=== PATIENT | male | born 1960 | race Caucasian/White ===

== ENCOUNTER 2022-12-02 10:02 | Inpatient (IN) | payer OTHER, SELFPAY ==
[2022-11-26 14:37] LABS: BASOPHILS % (AUTO) 0.5 % (0-1); EOSINOPHILS # (AUTO) 0.1 X10'3 (0-0.9); LYMPHOCYTES # (AUTO) 1.2 X10'3 (1.1-4.8); LYMPHOCYTES % (AUTO) 22.9 % (21-51); MEAN CORPUSCULAR HEMOGLOBIN 31.7 PG (27.0-31.0); MEAN CORPUSCULAR HGB CONC 33.3 g/dL (33.0-36.5); MEAN CORPUSCULAR VOLUME 95.2 FL (78-98); MEAN PLATELET VOLUME 8.2 FL (7.4-10.4); MONOCYTES # (AUTO) 0.6 X10'3 (0-0.9); MONOCYTES % (AUTO) 11.9 % (2-12); NEUTROPHILS # (AUTO) 3.4 X10'3 (1.8-7.7); NEUTROPHILS % (AUTO) 63.7 % (42-75); PRE OP HEMATOCRIT 42.7 % (42.0-52.0); PRE OP HEMOGLOBIN 14.2 g/dL (14.0-17.9); PRE OP PLATELET COUNT 198 X10'3 (140-440); PRE OP WHITE BLOOD COUNT 5.3 10'3 (4.8-10.8); RED BLOOD COUNT 4.49 X10'6 (4.70-6.10); RED CELL DISTRIBUTION WIDTH 14.3 % (11.5-14.5)
[2022-11-26 14:53] LABS: ALBUMIN 3.9 G/DL (3.4-5.0); ALBUMIN/GLOBULIN RATIO 1.2 (1.1-1.5); ALKALINE PHOSPHATASE 59 IU/L (46-116); BLOOD UREA NITROGEN 11 MG/DL (7-18); BUN/CREATININE RATIO 11.6 (10.0-20.0); CALCIUM 9.3 MG/DL (8.5-10.1); CHLORIDE 104 MMOL/L (99-107); CREATININE 0.95 MG/DL (0.60-1.10); PRE OP ALT 32 U/L (30-65); PRE OP ANION GAP 6 (8-16); PRE OP AST 18 U/L (10-37); PRE OP BILIRUB, TOTAL 0.4 MG/DL (0.0-1.0); PRE OP POTASSIUM 3.9 MMOL/L (3.4-5.1); PRE OP SODIUM 139 MMOL/L (135-145); TOTAL CARBON DIOXIDE 29.3 MMOL/L (24-32); TOTAL PROTEIN 7.1 G/DL (6.4-8.2); eGFR 80 ML/MIN
[2022-11-26 14:59] LABS: PRE OP GLUCOSE 100 MG/DL (70-104)
[2022-12-01 19:06] VITALS: BP 163/89; PULSE 66; RESP 20; TEMP 98.9; O2SAT 95
[2022-12-02] VITALS (21 sets, daily range): BP systolic 131–168; BP diastolic 73–89; PULSE 53–69; RESP 13–22; TEMP 98.9–99.2; O2SAT 93–100
[~2022-12-02] VITALS: Ht 170.2 cm; Wt 79.7 kg
[~2022-12-02 10:02] MED LIST: ASCO-139 PO; ATOR20TA PO; CETI10TA19 PO; CHOL50002 PO; CYAN100097 PO; FLO0.4C PO; HYPR15DR4 EACHEYE; LISI20TA28 PO; OMEP40CA21 PO; SIME80TA16 PO; TURM500C4 PO; [UNRECOGNIZED DRUG - CODE] EACHEYE; cefazolin 2gm/D5W 100mL 100 ML IV ONE; famotidine 20mg tablet PO ONE; ringers solution, lacted 1,000 ML IV SCH; tranexamic acid 650mg tablet PO ONE; vancomycin 1,500 MG in NS 300ml IV soln IV ONE
--- NOTE | 2022-12-02 12:00 | NUR ---
PT STATES HE BATHED AND USED BACTROBAN OINTMENT FOR THE LAST 5 DAYS PER TOTAL JOINT REPLACEMENT RECOMMENDATIONS, STATES HE DID NOT READ OR WATCH A DVD REGARDING TJR HE HAS HAD HIS LEFT SHOULDER REPLACED. PT DENIES DECREASED SENSATION IN RIGHT ARM/HAND. Addendum: 12/02/22 at 1505 by Isela Rob RN Amended: Links added.
[2022-12-02] MEDS ORDERED: ROPIVAcaine 0.5% (5mg/ml) 30ml vial ONE ×2 (13:28→14:17)
[2022-12-02] MEDS ORDERED: ketorolac trometh. 30mg/ml inj. ONE (13:28)
[2022-12-02] MEDS ORDERED: propofol inj 20 ML IV ONE (14:15)
[2022-12-02] MEDS ORDERED: MIDAZolam 1 MG/ML 5ML VIAL ONE (14:15)
[2022-12-02] MEDS ORDERED: fentaNYL/PF 50MCG/1 ML 2ML syringe ONE (14:15)
[2022-12-02] MEDS ORDERED: morphine 2 MG/ML inj. syringe IV PRN (14:20)
[2022-12-02] MEDS ORDERED: morphine 4 MG/ML inj SYRINge IV PRN (14:20)
[2022-12-02] MEDS ORDERED: ROPIVAcaine 0.2%/PF PUMP/bolus 545 ML INTERSCALE SCH (14:20)
[2022-12-02] MEDS ORDERED: proCHLORperazine 10 MG/2 ml inj IV PRN (14:20)
[2022-12-02] MEDS ORDERED: meperidine/PF 25mg/ml syringe IV PRN ×3 (14:20)
[2022-12-02] MEDS ORDERED: ringers solution, lacted 1,000 ML IV SCH (14:20)
[2022-12-02] MEDS ORDERED: ondansetron/PF 4mg/2ml inj IV PRN ×2 (14:20→15:30)
[2022-12-02] MEDS ORDERED: ROPIVAcaine 0.2% (10 MG/5 ML) BOLUS INJECTION INTERSCALE PRN (14:20)
[2022-12-02] MEDS ORDERED: ROPIVAcaine 0.5% (5mg/ml) 30ml vial IJ ONE (14:30)
[2022-12-02] MEDS ORDERED: sevoflurane 250ml liquid IH ONE (14:58)
[2022-12-02] MEDS ORDERED: hypromellose ophthalmic drops EACHEYE PRN ×2 (15:30→17:10)
[2022-12-02] MEDS ORDERED: magnesium hydroxide 30ml (MOM) UD suspension PO PRN (15:30)
[2022-12-02] MEDS ORDERED: bisacodyl 10mg suppository rectal RC PRN (15:30)
[2022-12-02] MEDS ORDERED: oxyCODONE IR 5mg (immed. release) tablet PO PRN ×2 (15:30)
[2022-12-02] MEDS ORDERED: diphenhydrAMINE 25mg capsule PO PRN ×2 (15:30)
[2022-12-02] MEDS ORDERED: naloxone 0.4 mg/ml inj IV PRN (15:30)
[2022-12-02] MEDS ORDERED: HYDROmorphone 1 mg/ml syringe IV PRN (15:30)
[2022-12-02] MEDS ORDERED: acetaminophen 325mg tablet PO PRN (15:30)
[2022-12-02] MEDS ORDERED: HYDROcodone/acetaminophen 10/325mg tab PO PRN ×2 (15:30)
[2022-12-02] MEDS ORDERED: HYDROmorphone inj. 0.5 MG/0.5 ML DISP.SYRIN IV PRN (15:30)
--- NOTE | 2022-12-02 16:59 | NUR ---
Received from OR via BED IN STABLE CONDITION , accompanied by Anesthesiologist and PAPER HANGER report given by PAPER HANGER AND Anesthesiolgist. Addendum: 12/02/22 at 1737 by Kerri Mills RN Amended: Links added.
--- NOTE | 2022-12-02 18:50 | NUR ---
Patient in room ORTHO 4023. I have received report from RASHAAD Manning in PACU and had the opportunity to ask questions and assume patient care.
--- NOTE | 2022-12-02 18:59 | NUR ---
PATIENT DISCHARGED FROM PACU IN STABLE CONDITION AFTER REPORT GIVEN TO RN TAKING OVER PATIENTS CARE. PATIENT TRANSFERRED TO ROOM 4020A VIA BED WITH RASHAAD AND JENNIFER. Addendum: 12/02/22 at 1926 by Kerri Mills RN Amended: Links added.
--- NOTE | 2022-12-02 19:00 | NUR ---
Patient arrived from PACU on a hospital bed, he had a right total shoulder. He is A&O x3, CARABALLO and is appropriate, I will continue to monitor.
[2022-12-02] MEDS: potassium cl 20mEq in 1/2 NS 1,000 ML IV SCH ×2 (19:27→23:30)
[2022-12-02] MEDS: simethicone 80mg chew tab PO SCH (19:29)
[2022-12-02] MEDS ORDERED: TURMERIC PO SCH (20:00)
[2022-12-02] MEDS ORDERED: TURMERIC ROOT EXTRACT PO SCH (20:00)
[2022-12-02] MEDS: FLUOROMETHOLONE EACHEYE SCH (20:00)
[2022-12-02] MEDS: acetaminophen 325mg tablet PO SCH (20:35)
[2022-12-02] MEDS: lisinopril 20mg tablet PO SCH (20:39)
[2022-12-02] MEDS ORDERED: atorvastatin 20mg tablet PO SCH (21:00)
[2022-12-02] MEDS ORDERED: cetirizine 10mg tablet PO SCH (21:00)
[2022-12-02] MEDS ORDERED: sennosides 8.6mg tablet PO SCH (21:00)
[2022-12-03] MEDS: simethicone 80mg chew tab PO SCH ×2 (00:32→10:07)
[2022-12-03 02:00] VITALS: BP 130/74; PULSE 81; RESP 20; TEMP 98.5; O2SAT 95
[2022-12-03] MEDS: potassium cl 20mEq in 1/2 NS 1,000 ML IV SCH (02:59)
[2022-12-03] MEDS: acetaminophen 325mg tablet PO SCH ×2 (02:59→09:13)
--- NOTE | 2022-12-03 06:13 | NUR ---
Problems reprioritized. Patient report given, questions answered & plan of care reviewed with RASHAAD Ortez.
[2022-12-03] MEDS ORDERED: pantoprazole 40mg Tablet.DR PO SCH ×2 (07:30)
[2022-12-03 07:50] VITALS: BP 126/58; PULSE 68; RESP 16; RESP 20; TEMP 98.2; O2SAT 98
[2022-12-03] MEDS ORDERED: ascorbic acid 500mg tablet PO SCH (08:00)
[2022-12-03] MEDS: FLUOROMETHOLONE EACHEYE SCH (08:00)
[2022-12-03] MEDS ORDERED: cholecalciferol (vitamin D3) 1,000 unit (25mcg) tablet PO SCH (08:00)
[2022-12-03] MEDS ORDERED: tamsulosin 0.4mg capsule PO SCH (08:00)
[2022-12-03] MEDS ORDERED: aspirin 325mg tablet PO SCH (08:30)
[2022-12-03 09:51] LABS: BASOPHILS % (AUTO) 0.3 % (0-1); EOSINOPHILS % (AUTO) 0.2 % (0-6); HEMATOCRIT 37.3 % (42.0-52.0); HEMOGLOBIN 12.5 g/dl (14.0-17.9); LYMPHOCYTES # (AUTO) 0.6 X10'3 (1.1-4.8); LYMPHOCYTES % (AUTO) 6.8 % (21-51); MEAN CORPUSCULAR HEMOGLOBIN 31.9 PG (27.0-31.0); MEAN CORPUSCULAR HGB CONC 33.4 g/dL (33.0-36.5); MEAN CORPUSCULAR VOLUME 95.5 FL (78-98); MEAN PLATELET VOLUME 8.2 FL (7.4-10.4); MONOCYTES # (AUTO) 0.9 X10'3 (0-0.9); MONOCYTES % (AUTO) 9.7 % (2-12); NEUTROPHILS # (AUTO) 7.7 X10'3 (1.8-7.7); PLATELET COUNT 159 X10'3 (140-440); RED CELL DISTRIBUTION WIDTH 14.6 % (11.5-14.5); WHITE BLOOD COUNT 9.3 X10'3 (4.5-11.0)
[2022-12-03 10:00] VITALS: BP 147/67; PULSE 60; RESP 18; TEMP 98.1; O2SAT 98
[2022-12-03 10:03] LABS: ANION GAP 0 (8-16); CHLORIDE 100 MMOL/L (99-107); SODIUM 127 MMOL/L (135-145); TOTAL CARBON DIOXIDE 26.6 MMOL/L (24-32)
[2022-12-03 10:09] LABS: POTASSIUM 7.1 MMOL/L (3.5-5.1)
[2022-12-03] MEDS ORDERED: cyanocobalamin 500mcg tablet PO SCH (10:12)
--- NOTE | 2022-12-03 11:21 | NUR ---
Joint surgery consult: Pt s/p R shoulder surgery this admit per EMR. Pt unable to be seen for in-person high protein diet ed at this time due to staffing. Written high protein diet ed w/ RD contact information mailed to pt home address in EMR. Addendum: 12/03/22 at [address] Amended: Links added.
[2022-12-03] MEDS ORDERED: ketorolac trometh. 30mg/ml inj. IV ONE (12:10)
[2022-12-03 16:15] VITALS: BP 180/81; PULSE 67; RESP 18; TEMP 98.2; O2SAT 99
[2022-12-03 16:35] VITALS: BP 167/84; PULSE 70; RESP 18
--- NOTE | 2022-12-03 16:42 | NUR ---
Spoken with [employer] QUIROGA, 1600 pt c/o 8/10 pain, shivers but not cold bp 180/81 1635 states pain down to 10 bp 167/84 amb in white with sister, no assist required. instructed to give pm dose of lisinipril, ok to dc home.
[2022-12-03 16:55] VITALS: BP_SYST 170; PULSE 69
[2022-12-03] MEDS: lisinopril 20mg tablet PO SCH (16:55)
[2022-12-04] MEDS ORDERED: acetaminophen 325mg tablet PO PRN (15:30)
== END 2022-12-03 17:32 | disposition home or self-care (01) | DRG 483 ==
LOC: PAS IN 10:02 → ORTHO 4S 19:13
PROVIDERS: ADMIT Orthopaedic Surgery; ATTEND Orthopaedic Surgery
PROC: 0LS30ZZ Reposition Right Upper Arm Tendon, Open Approach (ICD-10-PCS; 2022-12-02)
PROC: 3E0T3BZ Introduction of Anesthetic Agent into Peripheral Nerves and Plexi, Percutaneous Approach (ICD-10-PCS; 2022-12-02)
PROC: 0JH80WZ Insertion of Totally Implantable Vascular Access Device into Abdomen Subcutaneous Tissue and Fascia, Open Approach (ICD-10-PCS; 2022-12-02)
PROC: 0RRJ00Z Replacement of Right Shoulder Joint with Reverse Ball and Socket Synthetic Substitute, Open Approach (ICD-10-PCS; principal; 2022-12-02 14:58)
DX: M19.011 Primary osteoarthritis, right shoulder (principal); M75.121 Complete rotator cuff tear or rupture of right shoulder, not specified as traumatic; I10 Essential (primary) hypertension; K21.9 Gastro-esophageal reflux disease without esophagitis; N40.0 Benign prostatic hyperplasia without lower urinary tract symptoms; E66.8 Other obesity; M65.811 Other synovitis and tenosynovitis, right shoulder; I25.10 Atherosclerotic heart disease of native coronary artery without angina pectoris; Z96.612 Presence of left artificial shoulder joint; Z68.28 Body mass index [BMI] 28.0-28.9, adult; Z87.442 Personal history of urinary calculi; Z85.819 Personal history of malignant neoplasm of unspecified site of lip, oral cavity, and pharynx
CPT/HCPCS: 36415; 80051; 80053; 82948; 84132; 85025; 87081; 97161; 97530; A4618; A7000; C1776; G0378; J0690; J1170; J1885; J2250; J2704; J2795; J3010; J3370; J3480; J3490; J7120